=== PATIENT | male | born 1950 | race Caucasian/White ===

== ENCOUNTER 2018-06-08 16:11 | Inpatient (IN) | payer MEDICARE, BC ==
[~2018-06-08] VITALS: Ht 175.3 cm; Wt 81.8 kg
[2018-06-08] MEDS ORDERED: SOD CHLORIDE 0.9% 500 ML IV STA (16:21)
[2018-06-08] MEDS ORDERED: ASPIRIN 300 MG SUPP PR ONE (17:00)
--- NOTE | 2018-06-08 17:01 | ERD ---
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 He was given recent medical clearance prior to surgery and a recent exercise stress test was unremarkable. I did speak to his primary care physician, who in turn spoke to the anesthesiologist who stated there were no intraoperative episodes or hypoxic events, estimated blood loss was less than 150 cc. Surgery was approximately 7 hours and patient was laying supine during the whole surgery, when he woke up he complained of not feeling well, nonspecific substernal chest pain and shortness of breath. He was given multiple doses of meperidine for complaints of chest pain and then transported here. Patient's room air oxygen saturation was 100% and vital signs were normal at the facility and upon arrival. Patient denies abdominal pain, no back pain, no headache. HPI was limited as patient was postoperative but supplemented by speaking to EMS, his primary care physician, physician circulation assistant who was later at the bedside, and his who was also at the bedside. ROS All systems reviewed and are negative except as per history of present illness. Medications Home Meds Reported Medications [Unkown Cholesterol] No Conflict Check 06/08/18 [Unkown Htn] No Conflict Check 06/08/18 Allergies Allergies: Coded Allergies: No Known Allergies (Verified Allergy, Unknown, 02/15/10) PMhx/Soc Hyperlipidemia, hypertension, hypothyroidism, history of bladder tumor, history of stroke with no residual motor deficits, recent cardiac exercise stress test was unremarkable FmHx Family History: No diabetes Physical Exam Vitals Vital Signs Date Temp Pulse Resp B/P (MAP) Pulse Ox O2 O2 Flow FiO2 Time Delivery Rate 06/08/18 98.0 73 14 113/72 100 Room Air 18:16 (86) 06/08/18 98.0 83 14 104/65 100 16:21 (78) Physical Exam GENERAL: Well-developed, well-nourished, well-hydrated, in no apparent distress, lethargic, afebrile HEENT: Moist mucous membranes, pink conjunctiva, gauze dressing placed in the right naris, patient's head and mandible is currently wrapped in elastic bandage NEURO: Alert and oriented 1, pupils equal round reactive to light, patient moving all extremities, able to answer simple questions and follow simple commands. CARDIAC: Regular rate and rhythm, no murmurs rubs or gallops LUNGS: Clear bilaterally no wheezing crackles or stridor ABDOMEN: Soft nontender, no guarding, no rigidity, no rebound, no psoas sign no obturator sign. SKIN: Warm and dry to touch, no abrasions, contusions, or hematomas, no lacerations, no ecchymosis, no target lesions, and without ulcers EXTREMITIES: No clubbing cyanosis or edema, calves are bilaterally symmetrical, no Homans sign, no popliteal cord sign. Distal pulses equal and bilateral PSYCH: Normal affect without agitation or irritability Result Diagram: 06/08/18164906/08/181649 Results 24 hrs Laboratory Tests Test 06/08/18 16:50 White Blood Count 24.0 10^3/ul Red Blood Count 4.71 10^6/ul Hemoglobin 13.1 g/dl Hematocrit 39.9 % Mean Corpuscular Volume 84.7 fl Mean Corpuscular Hemoglobin 27.8 pg Mean Corpuscular Hemoglobin Concent 32.8 g/dl Red Cell Distribution Width 13.0 % Platelet Count 260 10^3/UL Mean Platelet Volume 9.5 fl Immature Granulocytes % 1.000 % Neutrophils % % Segmented Neutrophils % (Manual) 88 % Band Neutrophils % (Manual) 8 % Lymphocytes % % Lymphocytes % (Manual) 3 % Monocytes % % Monocytes % (Manual) 1 % Eosinophils % % Basophils % % Nucleated Red Blood Cells % 0.0 /100WBC Immature Granulocytes # 0.230 10^3/ul Neutrophils # 10^3/ul Neutrophils # (Manual) 21.6 10^3/ul Band Neutrophils # 1.9 10^3/ul Lymphocytes (Manual) 0.7 10^3/ul Lymphocytes # 10^3/ul Monocytes # 10^3/ul Monocytes # (Manual) 0.2 10^3/ul Eosinophils # 10^3/ul Basophils # 10^3/ul Nucleated Red Blood Cells # 10^3/ul Platelet Estimate NORMAL Prothrombin Time 13.1 Sec Prothrombin Time Ratio 1.0 INR International Normalized Ratio 0.98 Activated Partial Thromboplast Time 23.6 Sec Sodium Level 134 mmol/L Potassium Level 3.9 mmol/L Chloride Level 101 mmol/L Carbon Dioxide Level 20 mmol/L Anion Gap 13 Blood Urea Nitrogen 20 mg/dl Creatinine 0.73 mg/dl Est Glomerular Filtrat Rate mL/min > 60 mL/min Glucose Level 206 mg/dl Calcium Level 8.5 mg/dl Total Bilirubin 0.2 mg/dl Direct Bilirubin 0.00 mg/dl Indirect Bilirubin 0.2 mg/dl Aspartate Amino Transf (AST/SGOT) 38 IU/L Alanine Aminotransferase (ALT/SGPT) 25 IU/L Alkaline Phosphatase 35 IU/L Troponin I < 0.012 ng/ml Total Protein 6.7 g/dl Albumin 4.0 g/dl Globulin 2.70 g/dl Albumin/Globulin Ratio 1.48 Lipase 16 U/L Current Medications Medications Dose Sig/Ronald Start Time Status Last (Trade) Ordered Route PRN Stop Time Admin Dose Reason Admin Sodium 500 ml @ Q1H STAT 06/08/18 DC 06/08/18 Chloride 500 mls/hr IV 16:21 16:52 06/08/18 17:20 Aspirin 300 mg ONCE ONCE 06/08/18 DC 06/08/18 (Aspirin) MA 17:00 17:50 06/08/18 17:01 Sodium 100 ml @ ud STK-MED 06/08/18 DC 06/08/18 Chloride ONCE .ROUTE 17:26 17:26 06/08/18 17:27 Iohexol 100 ml @ ud STK-MED 06/08/18 DC 06/08/18 ONCE .ROUTE 17:26 17:26 06/08/18 17:27 Procedures/MDM IV line was established patient was placed on secured entrance monitor rhythm strip revealed a sinus rhythm at about 80 bpm with upright P and T waves. Patient was afebrile EKG #1 performed, read by me revealed a normal sinus rhythm 82 bpm, normal axis, narrow QRS complex, no concerning ST elevations or depressions noted Chest X-ray 1V Interpreted by me: Soft Tissue: No acute abnormalities Bones: No acute abnormalities Mediastinum/Cardiac Silhouette/Lungs: No acute abnormalities Doppler ultrasound of the bilateral lower extremities was performed, no deep vein thrombosis noted. I administered 500 cc normal saline IV and aspirin 300 per rectum for cardioprotective measures. EKG #2 was performed, read by me revealed a normal sinus rhythm at 73 bpm, normal axis, narrow QRS complex, no concerning ST elevations or depressions noted CT scan of the brain performed,IMPRESSION: 1. No acute intracranial abnormalities are identified. 2. A small air-fluid level is seen in the right maxillary sinus. 3. Age compatible cortical atrophy with proportional dilatation of the lateral ventricle. 4. Old lacunar infarct again seen near the genu of the internal capsule on the right. This has remained stable when compared to 2010. CT scan of the maxillofacial bones was performed, postoperative changes noted, drain in place. CTA of the chest was performed, no pulmonary embolism or aortic dissection noted. Please refer to radiologist dictation for full report. CBC reveals a leukocytosis of 24 consistent with recent surgery, electrolytes are unremarkable, liver function tests normal, troponin negative I spoke to supply tech Dr. Oden who agreed to consult the patient Patient will be admitted to telemetry for continued medical management and cardiology consultation and further intervention or imaging if indicated. Departure Diagnosis: Primary Impression: Chest pain Chest pain type: unspecified Qualified Codes: R07.9 - Chest pain, unspecified Condition: CIERA Khanna MD Jun 08, 2018 17:01
[2018-06-08] MEDS ORDERED: IOHEXOL 100 ML ONE (17:26)
[2018-06-08] MEDS ORDERED: SOD CHLORIDE 0.9% 100 ML ONE (17:26)
[2018-06-08] MEDS ORDERED: ACETAMINOPHEN 1000MG/100ML IV 100 ML IVPB ONE (19:30)
[2018-06-08] MEDS ORDERED: SOD CHLORIDE 0.9% 1,000 ML IV ONE (19:30)
[2018-06-08] MEDS ORDERED: UNKOWN HTN (19:38)
[2018-06-08] MEDS ORDERED: UNKOWN CHOLESTEROL (19:41)
[2018-06-08 20:30] VITALS: BP 115/58; PULSE 74; RESP 19; Ht 175.3 cm; Wt 81.8 kg
[2018-06-08] MEDS ORDERED: DOCUSATE SODIUM 100 MG CAP PO PRN (20:30)
[2018-06-08] MEDS ORDERED: BISACODYL (EC) 5 MG TAB PO PRN (20:30)
[2018-06-08] MEDS ORDERED: morphine 2 MG INJ IV PRN (20:30)
[2018-06-08] MEDS ORDERED: NACL 0.9% 3 ML SYG IV SCH (20:30)
[2018-06-08] MEDS ORDERED: ONDANSETRON 4 MG TAB PO PRN (20:30)
[2018-06-08] MEDS ORDERED: NITROGLYCERIN (SL) 0.4 MG TAB SL PRN (20:30)
[2018-06-08 20:34] VITALS: PULSE 92
--- NOTE | 2018-06-08 23:04 | HP ---
Date/Time of Note Date/Time of Note DATE: 06/08/18 TIME: 23:04 Assessment/Plan VTE Prophylaxis SCD applied (from Nsg): Yes Pharmacological prophylaxis: NA/contraindicated Pharm contraindication: low risk/ambulating Lines/Catheters IV Catheter Type (from Nrsg): Saline Lock Assessment/Plan Hospital Course This is a 57-year-old male being admitted to the telemetry floor for: #1 chest pain: Rule out ACS versus pulmonary embolism versus postsurgical/anesthesia reaction: Though the CT of the chest was suboptimal there were no signs of any overt central pulmonary embolism. EKG was nonischemi c. Initial cardiac enzyme was negative. Will trend cardiac enzymes. Will obtain an echocardiogram. Patient has remained in normal sinus rhythm throughout his stay so far we will continue to monitor on telemetry. His oxygenation has been 100% on room air as well. At this time my suspicion for an ACS event/pulmonary embolism is low however we will continue to rule out. cardio consult has already been placed to Dr. Oden. #3 leukocytosis: Likely reactive/stress related secondary to patient's surgery. Remains afebrile. Will nonetheless obtain blood cultures. And will put the patient on Zosyn as he was supposed to go home on oral antibiotics however at the current time he reports that he does not feel that he can tolerate oral. Repeat CBC in the a.m. Monitor for signs of fever. #2 Facial surgery: Patient is POD#0 from face lift rhinoplasty. Imaging studies show signs of edematous soft tissue of the neck and scattered subq air. Likely expected post op changes, will place a call to Dr. Mcclendon the surgeon who performed the surgery to discuss. Patient was to be taking oral antibiotics postop however at the current time he does not feel like he would like an oral medications. I will start him on Zosyn once I obtain blood cultures. #3. Hypertension: We will need to confirm patient's home medications, at the current time will monitor and PRN hydralazine #4 history of CVA: No residual deficits, continue to monitor we will need to discuss when we can resume patient's Plavix #5Hyperlipidemia: We will check lipid panel confirm patient's home medications #6 DVT GI prophylaxis: SCDs, no GI prophylaxis indicated Further treatment strategy will be implemented as per the clinical course. Danelle: Result Diagram: 06/08/18 1650 06/08/18 1650 Results 24hrs Laboratory Tests Test 06/08/18 16:50 White Blood Count 24.0 H Red Blood Count 4.71 Hemoglobin 13.1 L Hematocrit 39.9 L Mean Corpuscular Volume 84.7 Mean Corpuscular Hemoglobin 27.8 L Mean Corpuscular Hemoglobin Concent 32.8 Red Cell Distribution Width 13.0 Platelet Count 260 Mean Platelet Volume 9.5 Immature Granulocytes % 1.000 H Neutrophils % Segmented Neutrophils % (Manual) 88 H Band Neutrophils % (Manual) 8 H Lymphocytes % Lymphocytes % (Manual) 3 L Monocytes % Monocytes % (Manual) 1 Eosinophils % Basophils % Nucleated Red Blood Cells % 0.0 Immature Granulocytes # 0.230 H Neutrophils # Neutrophils # (Manual) 21.6 H Band Neutrophils # 1.9 H Lymphocytes (Manual) 0.7 L Lymphocytes # Monocytes # Monocytes # (Manual) 0.2 L Eosinophils # Basophils # Nucleated Red Blood Cells # Platelet Estimate NORMAL Prothrombin Time 13.1 Prothrombin Time Ratio 1.0 INR International Normalized Ratio 0.98 Activated Partial Thromboplast Time 23.6 Sodium Level 134 L Potassium Level 3.9 Chloride Level 101 Carbon Dioxide Level 20 L Anion Gap 13 Blood Urea Nitrogen 20 Creatinine 0.73 Est Glomerular Filtrat Rate mL/min > 60 Glucose Level 206 Calcium Level 8.5 Total Bilirubin 0.2 Direct Bilirubin 0.00 Indirect Bilirubin 0.2 Aspartate Amino Transf (AST/SGOT) 38 Alanine Aminotransferase (ALT/SGPT) 25 Alkaline Phosphatase 35 L Troponin I < 0.012 Total Protein 6.7 Albumin 4.0 Globulin 2.70 Albumin/Globulin Ratio 1.48 Lipase 16 L HPI/ROS Admit Date/Time Admit Date/Time Jun 08, 2018 at 18:31 Hx of Present Illness Chief complaint: Chest pain status post surgery This is a 67-year-old male with past medical history of hypertension and CVA who presented to [facility] ER complaining of chest pain or shortness of breath yesterday at approximately 1500. Patient was brought in via EMS from surgical center and [email or web address] were patient was having a facelift as well as a septoplasty. Patient reports that he woke up from surgery and started experiencing substernal chest pain with shortness of breath. Patient reports that the chest pain was nonradiating. Patient did have an extensive surgery of approximately 7 hours. I did speak to the patient's surgeon Dr. Mcclendon over the phone regarding the surgery, who had a possible suspicion for esophagitis/acid reflux could be contributing to his symptoms. Patient describes the chest pain as a heaviness and a rated a 4 out of 10. When he arrived in the emergency department he was satting at 100% on room air and he was not tachycardic. At the current time patient is lying in bed no relative acute distress. He has some facial discomfort from his surgery but he is otherwise comfortable. He reports that his chest pressure and shortness of breath have resolved. Patient had extensive imaging studies in the ED including a CTA of the chest though it was suboptimal did not show any signs of any central pulmonary embolism. Venous Dopplers were negative for lower extremity DVT. EKG was normal sinus and nonischemic appearing. CT of the chest as well as facial CT did show signs of edematous soft tissue at the base of the right neck as well as some scattered subcutaneous air. Allergies: NKDA Medications: See MAR ROS Const: As per HPI Eyes : No pain discharge or redness or change in visual acuity ENT: As per HPI Respiratory: As per HPI Cardiovascular: As per HPI GI : no change in appetite, abdominal pain, nausea, vomiting, diarrhea, constipation, or change in the color his stool Genitourinary: No dysuria, hematuria, flank pain , discharge or CVA tenderness Musculoskeletal: No joint pain, back pain, neck pain, restricted range of motion in neck or joints Skin: No rash, bruising or hives Neuro: No headache, dizziness, syncope, seizure, focal weakness Endocrine: No polyuria, polydipsia, temperature intolerance Psych: No hallucination, depression, anxiety or suicidal ideation PMH/Family/Social Past Medical History Hypertension, history of CVA, hyperlipidemia, history of bladder cancer Medications Current Medications IV Flush (NS 3 ml) 3 ml PER PROTOCOL IV ; Start 06/08/18 at 20:30 Ondansetron HCl (Zofran Tab) 4 mg Q6H PRN PO NAUSEA/VOMITING; Start 06/08/18 at 20:30 Nitroglycerin (Nitroglycerin (Sl Tab) 0.4 Mg) 1 tab Q5M PRN SL .CHEST PAIN; Start 06/08/18 at 20:30 Acetaminophen (Tylenol Tab) 650 mg Q6H PRN PO .PAIN 1-3 OR TEMP; Start 06/08/18 at 20:30 Morphine Sulfate (morphine) 2 mg Q4H PRN IV .PAIN 7-10; Start 06/08/18 at 20:30 Docusate Sodium (Colace) 100 mg Q12H PRN PO .CONSTIPATION; Start 06/08/18 at 20:30 Bisacodyl (Dulcolax) 5 mg DAILY PRN PO .CONSTIPATION; Start 06/08/18 at 20:30 Piperacillin Sod/ Tazobactam Sod 100 ml @ 200 mls/hr Q6 IVPB ; Start 06/09/18 at 00:00; Status UNV Sodium Chloride 1,000 ml @ 75 mls/hr [id number] IV ; Start 06/08/18 at 23:00; Status UNV Coded Allergies: No Known Allergies (Verified Allergy, Unknown, 02/15/10) Past Surgical History Bladder cancer status post cystoscopy, rhinoplasty, carpal tunnel treatment bilaterally, status post septoplasty and facelift (06/08) Family History Significant Family History: no pertinent family hx Social History Alcohol Use: none Smoking Status: Never smoker Drug Use: none Exam/Review of Systems Vital Signs Vitals Vital Signs Date Temp Pulse Resp B/P (MAP) Pulse Ox O2 O2 Flow FiO2 Time Delivery Rate 06/08/18 97.5 74 19 115/58 97 20:30 (77) 06/08/18 Room Air 20:16 Exam Exam General: Patient is a pleasant male currently lying in bed he does not appear to be in any acute distress, he does appear to be slightly anxious HEENT: Postsurgical dressing in place, nasal packing Neck: Supple with full range of motion. No rigidity or meningismus Chest: Nontender Lungs: Clear to auscultation bilaterally no crackles rales or wheezing Heart: Normal S1-S2, Regular rhythm and rate. No overt murmurs appreciated on auscultation Abdomen: Soft , nontender, nondistended , bowel sounds are present. No guarding no rebound tenderness , No masses or organomegaly. No costovertebral temporal angle mass Extremities: Normal to inspection, no edema no cyanosis Neurologic: Normal mental status, speech normal, cranial nerves II through XII are intact, motor and sensory are intact, no focal weakness Additional Comments PROCEDURE: CT Brain without contrast. CLINICAL INDICATION: Trauma, injury, altered mental status TECHNIQUE: A CT of the brain was performed on a multi-slice CT scanner utilizing axial imaging from the skull base through the vertex without IV contrast. Multiplanar reformatted images were made. Images were reviewed on a PACS workstation. The CTDIvol is 38.8 mGy and the DLP is 836.7 mGycm. One or more of the following dose reduction techniques were used: Automated exposure control. Adjustment of the mA and/or kV according to patient's size. Use of iterative reconstruction technique. DICOM images are available. COMPARISON: MRI of the brain from 02/12/2010 FINDINGS: The sulcal gyral pattern is unremarkable without evidence of effacement. The molina-white matter differentiation is intact. There is age compatible cortical atrophy with proportional dilatation of the lateral ventricle. An old lacunar infarct is again seen near the genu of the internal capsule on the right. This has remained stable when compared to 2009. Moderate deep white matter ischemic changes are present. No masses, edema or shift is identified. There are no intraparenchymal or extraaxial fluid collections. There is a small air-fluid level in the right maxillary sinus. The remaining paranasal sinuses are well-aerated. The skull base and calvarium are intact. IMPRESSION: 1. No acute intracranial abnormalities are identified. 2. A small air-fluid level is seen in the right maxillary sinus. 3. Age compatible cortical atrophy with proportional dilatation of the lateral ventricle. 4. Old lacunar infarct again seen near the genu of the internal capsule on the right. This has remained stable when compared to 2009. RPTAT:AAJJ Physician Magalis Date Time Electronically viewed and signed by Physician Magalis on 06/08/2018 19:39 MC/ CC: CIERA LEVY MD [id number] PROCEDURE: CT facial bones CLINICAL INDICATION: Altered mental status. Facial surgery. TECHNIQUE: A CT of the facial bones was performed utilizing high-resolution axial images. Sagittal, coronal, and multiplanar reformatted images were made. The CTDIvol is 29.46 mGy and the DLP is 680.19 mGy-cm. DICOM images are available. One or more of the following dose reduction techniques were utilized: 1.) Automated exposure control 2.) Adjustment of the mA +/- kV according to patient's size 3.) Use of iterative reconstruction technique. COMPARISON: None. FINDINGS: The osseous structures are intact with no evidence of fracture. The orbits, as visualized, appear intact. Subcutaneous emphysema over the left lateral facial region at the level of the zygomatic arch, and posterior to the left ear. There is a post surgical drain in the right nares. Post surgical drains at the bilateral lateral facial region at the level of the bilateral ears, and at the bilateral lower facial regions at the level of the mandible. Subcutaneous fluid is seen bilaterally over the bilateral temporalis muscles at the level of the mandible. There is no evident abscess. Otherwise, the overlying soft tissues are grossly unremarkable. The visualized paranasal sinuses are clear. IMPRESSION: 1. Post surgical drains are seen, with subcutaneous fluid over the bilateral temporalis muscles. 2. There is no evident abscess on this noncontrast CT examination. 3. Scattered subcutaneous air over the left lateral facial region. 4. A contrast enhanced CT examination may be of further use. 5. No evident acute fracture. RPTAT: [facility] Physician Aliya Date Time Electronically viewed and signed by Physician Aliya on 06/08/2018 19:51 RS/ CC: CIERA LEVY MD [id number] PROCEDURE: XR Chest, 1 View CLINICAL INDICATION: Pain. TECHNIQUE: Frontal view of the chest. COMPARISON: 02/12/2010 (02/12/2010) FINDINGS: LUNGS: Unremarkable. No consolidation. PLEURAL SPACE: Unremarkable. No pneumothorax. HEART: Unremarkable. No cardiomegaly. MEDIASTINUM: Unremarkable. BONES/JOINTS: Degenerative changes of the bilateral shoulders, and of the thoracic spine. IMPRESSION: 1. No acute cardiopulmonary disease demonstrated. 2. There is no significant interval change from the previous study. RPTAT: [facility] Varinder Silver, Physician Palliative Care Physician Date Time Electronically viewed and signed by Varinder Silver Physician Palliative Care Physician on 06/08/2018 17:33 C/ CC: CIERA LEVY MD [id number] PROCEDURE: CTA Chest. CLINICAL INDICATION: Shortness of breath. Evaluate for pulmonary embolism. TECHNIQUE: Multiple contiguous axial CT images of the chest were obtained following the administration of 100 cc of Omnipaque 350 intravenous contrast. High-resolution thin slice coronal and sagittal reformats were obtained from the axial source images. 3-D volumetric rendered post processing was also performed. DICOM images are available. CTDIvol(mGy): 38.77 mGy; Total Exam DLP (mGy-cm): 777.1 mGy.cm. One or more of the following dose reduction techniques were utilized: - Automated exposure control. - Adjustment of the mA and/or kV according to patient size. - Use of iterative reconstruction technique. COMPARISON: Chest x-ray 06/08/2018. FINDINGS: Limited imaging of the lower neck demonstrates edematous soft tissues of the right base of the neck. The heart is not enlarged. There is no pericardial effusion. There is no mediastinal, hilar or axillary lymphadenopathy. The thoracic aorta is normal in caliber. The pulmonary arteries are not enlarged. Suboptimal contrast enhancement of the pulmonary arteries is observed. The density of the main pulmonary artery is approximately 140 HU. There is no obvious filling defect of the central pulmonary arteries. Low lung volumes are observed. Mild atelectatic changes are seen within the dependent portions of the bilateral lower lobes. The tracheobronchial tree is normal in caliber. There is no substantial bronchial wall thickening. Limited imaging of the upper abdomen is unremarkable. Mild degenerative changes of the thoracic spine are observed. IMPRESSION: Edematous soft tissues of the right base of the neck. Suboptimal contrast enhancement of the pulmonary arteries limiting evaluation of acute pulmonary embolism. There is no obvious filling defects of the larger central pulmonary arteries. Low lung volumes with mild basilar atelectatic changes. RPTAT: [facility] .Anamika Lombardi MD, Date Time Electronically viewed and signed by .Anamika Lombardi MD, MD on 06/08/2018 20:04 .T/ CC: CIERA LEVY MD [id number] PROCEDURE: US Duplex Bilateral Lower Extremity Veins CLINICAL INDICATION: Edema. TECHNIQUE: Real-time duplex ultrasound scan of the bilateral lower extremity veins integrating B-mode two-dimensional vascular structure, Doppler spectral analysis, color flow Doppler imaging and compression. COMPARISON: None FINDINGS: RIGHT DEEP VEINS: Unremarkable. No DVT in the right common femoral, femoral, proximal deep femoral or popliteal veins. The veins demonstrate normal color flow, are normally compressible, with normal phasic flow and/or augmentation response. RIGHT SUPERFICIAL VEINS: Unremarkable. No thrombus in the visualized right great saphenous vein. LEFT DEEP VEINS: Unremarkable. No DVT in the left common femoral, femoral, proximal deep femoral or popliteal veins. The veins demonstrate normal color flow, are normally compressible, with normal phasic flow and/or augmentation response. LEFT SUPERFICIAL VEINS: Unremarkable. No thrombus in the visualized left great saphenous vein. SOFT TISSUES: No acute findings. No popliteal cyst. IMPRESSION: No deep vein thrombosis, bilateral lower extremities. RPTAT: [facility] Varinder Silver Physician Date Time Electronically viewed and signed by Varinder Silvre Physician Palliative Care Physician on 06/08/2018 17:34 RmC/ CC: CIERA LEVY MD [id number] TESSIE LEY Jun 08, 2018 23:04
[2018-06-08] MEDS ORDERED: ACETAMINOPHEN 1000MG/100ML IV 100 ML IVPB PRN (23:30)
[2018-06-09] VITALS: BP 109/58; PULSE 76; PULSE 77; RESP 20
[2018-06-09] MEDS: PIPER-TAZO 3.375 GM IV (PMX) 100 ML IVPB SCH ×2 (00:22→06:27)
[2018-06-09] MEDS: SOD CHLORIDE 0.9% 1,000 ML IV SCH ×3 (00:23→10:55)
[2018-06-09] MEDS: ACETAMINOPHEN 325 MG TAB PO PRN ×3 (00:35→10:46)
[2018-06-09 04:00] VITALS: BP 116/60; PULSE 77; PULSE 85; RESP 19
[2018-06-09 07:27] VITALS: BP 118/62; PULSE 82; RESP 16
[2018-06-09 08:12] VITALS: PULSE 70
--- NOTE | 2018-06-09 11:01 | PDOCDIS ---
Discharge Instructions DIAGNOSIS Discharge Diagnosis Noncardiac intraoperative chest pain CONDITION [id number] Patient Condition: [id number] Good HOME CARE INSTRUCTIONS: [id number] Diet Instructions: [id number] Regular ACTIVITY: [id number] Activity Restrictions: [id number] No Restrictions FOLLOW UP/APPOINTMENTS Follow-up Plan 1. Take all medications as prescribed. 2. See your plastic surgeon and primary care doctor as scheduled. CHERI LIN MD Jun 09, 2018 11:01
[2018-06-09 11:13] VITALS: BP 134/66; PULSE 69; RESP 19
--- NOTE | 2018-06-09 16:43 | DS ---
Date/Time of Note Date/Time of Note DATE: 06/09/18 TIME: 16:41 Discharge Summary Admission/Discharge Info Admit Date/Time Jun 08, 2018 at 18:31 Discharge Date/Time Jun 09, 2018 at 12:00 Discharge Diagnosis Noncardiac intraoperative chest pain Patient Condition: Good Consults None Procedures None Hx of Present Illness Chief complaint: Chest pain status post surgery This is a 67-year-old male with past medical history of hypertension and CVA who presented to [facility] ER complaining of chest pain or shortness of breath yesterday at approximately 1500. Patient was brought in via EMS from surgical center and [place] were patient was having a facelift as well as a septoplasty. Patient reports that he woke up from surgery and started experiencing substernal chest pain with shortness of breath. Patient reports that the chest pain was nonradiating. Patient did have an extensive surgery of approximately 7 hours. I did speak to the patient's surgeon Dr. Mcclendon over the phone regarding the surgery, who had a possible suspicion for esophagitis/acid reflux could be contributing to his symptoms. Patient describes the chest pain as a heaviness and a rated a 4 out of 10. When he arrived in the emergency department he was satting at 100% on room air and he was not tachycardic. At the current time patient is lying in bed no relative acute distress. He has some facial discomfort from his surgery but he is otherwise comfortable. He reports that his chest pressure and shortness of breath have resolved. Patient had extensive imaging studies in the ED including a CTA of the chest though it was suboptimal did not show any signs of any central pulmonary embolism. Venous Dopplers were negative for lower extremity DVT. EKG was normal sinus and nonischemic appearing. CT of the chest as well as facial CT did show signs of edematous soft tissue at the base of the right neck as well as some scattered subcutaneous air. Allergies: NKDA Hospital Course Cardiac workup included trops negative x3 and two EKGs without ischemic changes. Chest pain had resolved soon after admission. The patient reported having a negative cardiac stress test just two weeks prior to surgery. Given this, it is very unlikely to be ACS. Care plan was discussed with patient and we decided on discharge. He will followup with his plastic surgeon Home Meds Reported Medications [Unkown Cholesterol] No Conflict Check 06/08/18 [Unkown Htn] No Conflict Check 06/08/18 Follow-up Plan 1. Take all medications as prescribed. 2. See your plastic surgeon and primary care doctor as scheduled. Primary Care Provider Not On Staff Doctor Time spent on discharge: > 30 minutes Pending Labs Laboratory Tests Test 06/08/18 16:50 06/08/18 22:50 06/09/18 05:59 White Blood Count 24.0 14.8 10^3/ul (4.8-10.8) 10^3/ul (4.8-10.8) Red Blood Count 4.71 4.11 10^6/ul (4.70-6.10) 10^6/ul (4.70-6.10 ) Hemoglobin 13.1 11.5 g/dl (14.0-18.0) g/dl (14.0-18.0) Hematocrit 39.9 % (42.0-52.0) 34.4 % (42.0-52.0) Mean Corpuscular 84.7 83.7 Volume fl (82.0-101.0) fl (82.0-101.0) Mean Corpuscular 27.8 pg (29.0-33.0) 28.0 Hemoglobin pg (29.0-33.0) Mean Corpuscular 32.8 33.4 Hemoglobin Concent g/dl (32.0-37.0) g/dl (32.0-37.0) Red Cell 13.0 % (11.5-14.5) 13.0 % (11.5-14.5) Distribution Width Platelet Count 260 232 10^3/UL (140-415) 10^3/UL (140-415) Mean Platelet 9.5 fl (7.4-10.4) 9.5 fl (7.4-10.4) Volume Immature 1.000 0.700 Granulocytes % % (0.001-0.429) % (0.001-0.429) Neutrophils % % (39.0-77.0) 86.0 % (39.0-77.0) Segmented 88 % (39-77) Neutrophils % (Manual) Band Neutrophils % 8 % (0-4) (Manual) Lymphocytes % % (15.0-51.0) 6.7 % (15.0-51.0) Lymphocytes % 3 % (15-51) (Manual) Monocytes % % (0.0-11.0) 6.5 % (0.0-11.0) Monocytes % 1 % (0-11) (Manual) Eosinophils % % (0.0-7.0) 0.0 % (0.0-7.0) Basophils % % (0.0-2.0) 0.1 % (0.0-2.0) Nucleated Red Blood 0.0 0.0 Cells % /100WBC (0.0-0.0) /100WBC (0.0-0.0) Immature 0.230 0.110 Granulocytes # 10^3/ul (0.0-0.031) 10^3/ul (0.0-0.031 ) Neutrophils # 10^3/ul (1.6-7.5) 12.7 10^3/ul (1.6-7.5) Neutrophils # 21.6 (Manual) 10^3/ul (1.6-7.5) Band Neutrophils # 1.9 10^3/ul (0.0-0.6) Lymphocytes 0.7 (Manual) 10^3/ul (0.8-2.9) Lymphocytes # 10^3/ul (0.8-2.9) 1.0 10^3/ul (0.8-2.9) Monocytes # 10^3/ul (0.3-0.9) 1.0 10^3/ul (0.3-0.9) Monocytes # 0.2 (Manual) 10^3/ul (0.3-0.9) Eosinophils # 10^3/ul (0.0-0.5) 0.0 10^3/ul (0.0-0.5) Basophils # 10^3/ul (0.0-0.1) 0.0 10^3/ul (0.0-0.1) Nucleated Red Blood 10^3/ul (0.0-0.0) 0.0 Cells # 10^3/ul (0.0-0.0) Platelet Estimate NORMAL Prothrombin Time 13.1 Sec (11.9-14.9) Prothrombin Time 1.0 Ratio INR International 0.98 Normalized Ratio Activated 23.6 Partial Thromboplas Sec (23.0-35.0) t Time Sodium Level 134 139 mmol/L (135-144) mmol/L (135-144) Potassium Level 3.9 4.0 mmol/L (3.5-5.1) mmol/L (3.5-5.1) Chloride Level 101 mmol/L (97-110) 105 mmol/L (97-110) Carbon Dioxide 20 mmol/L (21-31) 25 mmol/L (21-31) Level Anion Gap 13 (5-13) 9 (5-13) Blood Urea 20 mg/dl (7-20) 12 mg/dl (7-20) Nitrogen Creatinine 0.73 0.72 mg/dl (0.61-1.24) mg/dl (0.61-1.24) Est Glomerular > 60 mL/min (>60) > 60 mL/min (>60) Filtrat Rate mL/min Glucose Level 206 mg/dl (70-220) 112 mg/dl (70-220) Calcium Level 8.5 9.0 mg/dl (8.4-10.2) mg/dl (8.4-10.2) Total Bilirubin 0.2 mg/dl (0.2-1.3) 0.3 mg/dl (0.2-1.3) Direct Bilirubin 0.00 0.00 mg/dl (0.00-0.20) mg/dl (0.00-0.20) Indirect Bilirubin 0.2 mg/dl (0-1.1) 0.3 mg/dl (0-1.1) Aspartate Amino 38 IU/L (15-46) 35 IU/L (15-46) Transf (AST/SGOT) Alanine 25 IU/L (13-69) 29 IU/L (13-69) Aminotransferase (A LT/SGPT) Alkaline 35 IU/L (42-121) 42 IU/L (42-121) Phosphatase Troponin I < 0.012 < 0.012 < 0.012 ng/ml (0.000-0.120) ng/ml (0.000-0.120 ng/ml (0.000-0.120 ) ) Total Protein 6.7 g/dl (6.1-8.1) 5.9 g/dl (6.1-8.1) Albumin 4.0 g/dl (3.3-4.9) 3.5 g/dl (3.3-4.9) Globulin 2.70 g/dl (1.3-3.2) 2.40 g/dl (1.3-3.2) Albumin/Globulin 1.48 1.45 Ratio Lipase 16 U/L (23-300) Creatine Kinase 431 IU/L (23-200) 383 IU/L (23-200) Creatine Kinase 1.4 1.8 Index Creatinine Kinase 6.24 6.74 MB (Mass) ng/ml (0.0-2.4) ng/ml (0.0-2.4) Hemoglobin A1c 5.3 % (0-5.9) Magnesium Level 1.9 mg/dl (1.7-2.5) Triglycerides 26 mg/dl (0-149) Level Cholesterol Level 130 mg/dl (100-200) LDL Cholesterol, 79 mg/dl Calculated HDL Cholesterol 46 mg/dl (30-78) Cholesterol/HDL 2.8 RATIO Ratio Thyroid Stimulating 1.080 Hormone (TSH) MIU/L (0.465-4.680 ) CHERI LIN MD Jun 09, 2018 16:43
== END 2018-06-09 12:00 | disposition home or self-care (01) | DRG 313 ==
LOC: E/R 16:11 → TEL 18:31
PROVIDERS: ADMIT Internal Medicine; ATTEND Internal Medicine
DX: R07.89 Other chest pain (principal); I10 Essential (primary) hypertension; E78.5 Hyperlipidemia, unspecified; E03.9 Hypothyroidism, unspecified; Z86.73 Personal history of transient ischemic attack (TIA), and cerebral infarction without residual deficits; Z85.51 Personal history of malignant neoplasm of bladder
CPT/HCPCS: 70450; 70486; 71045; 71275; 80053; 80061; 82550; 82553; 83036; 83690; 83735; 84443; 84484; 85025; 85610; 85730; 87040; 93005; 93970; J0131; J2543; J7030; J7040; Q9967